=== PATIENT | male | born 1955 | race Caucasian/White ===

== ENCOUNTER 2019-07-07 11:05 | Outpatient (CLI) | payer MEDICARE, SELFPAY ==
[2019-07-07 11:40] LABS: Blood Urea Nitrogen 7 mg/dL (9-20); Carbon Dioxide 26 mmol/L (22-30); Chloride 100 mmol/L (98-107); Estimated Glomerular Filt Rate > 60; Glucose 96 mg/dL (75-110); Potassium 4.6 mmol/L (3.4-5.0); Sodium 135 mmol/L (137-145)
== END 2019-07-07 11:06 | disposition home or self-care (01) ==
PROVIDERS: PCP Internal Medicine; Visit Provider Nurse Practitioner
DX: E87.1 Hypo-osmolality and hyponatremia (principal)
CPT/HCPCS: 36415; 80048

== ENCOUNTER 2019-12-13 08:14 | Outpatient (CLI) | payer MEDICARE, SELFPAY ==
[2019-12-13 09:08] LABS: Alanine Aminotransferase 16 U/L (4-50); Albumin Level 4.4 g/dL (3.5-5.1); Alkaline Phosphatase 78 U/L (38-126); Aspartate Amino Transferase 26 U/L (17-59); Bilirubin,Total 1.4 mg/dL (0.2-1.3); Blood Urea Nitrogen 9 mg/dL (9-20); Calcium 9.5 mg/dL (8.4-10.2); Carbon Dioxide 29 mmol/L (22-30); Cholesterol 156 mg/dL (0-200); Estimated Glomerular Filt Rate > 60; Glucose 80 mg/dL (75-110); HDL Direct 48 mg/dL; Triglycerides 82 mg/dL (<150)
[2019-12-13 09:16] LABS: Basophils Percent Auto 0.5 % (0.2-1.2); Eosinophils Absolute Auto 0.1 K/mm3 (0-0.3); Eosinophils Percent Auto 2.3 % (0-4.4); Hemoglobin 16.1 g/dL (14.0-18.0); Immature Granulocyte Absolute 0.02 K/mm3 (0.00-0.031); Immature Granulocyte Percent A 0.5 % (0-0.5); Immature Platelet Fraction Pct 5.3 % (0.9-11.2); LDL Cholesterol Direct 84 mg/dL; Lymphocytes Absolute Auto 0.93 K/mm3 (0.9-3.2); Lymphocytes Percent Auto 21.3 % (18.3-44.2); Mean Corpuscular HGB Conc 34.3 g/dl (32-36); Mean Corpuscular Hemoglobin 31.6 pg (26-34); Mean Corpuscular Volume 92.2 fl (80-100); Mean Platelet Volume 10.5 fl (7.4-10.4); Monocytes Absolute Auto 0.4 K/mm3 (0.1-0.6); Monocytes Percent Auto 9.8 % (2.6-8.5); Neutrophils Absolute Auto 2.9 K/mm3 (1.3-6.7); Neutrophils Percent Auto 65.6 % (45.5-73.1); Platelet Count Result 103 k/mm3 (150-375); Red Cell Distribution Width 12.9 % (11.5-14.5); White Blood Count 4.4 K/mm3 (4.5-10.0)
[2019-12-13 09:19] LABS: Anion Gap 11 mmol/L (8-16); Chloride 94 mmol/L (98-107); Potassium 4.8 mmol/L (3.4-5.0); Sodium 134 mmol/L (137-145)
[2019-12-13 09:36] LABS: Prostate Specific Antigen 1.9 ng/mL (< OR = 4.0)
[2019-12-13 10:01] LABS: Vitamin B12 > 1000.0 pg/mL (239-931)
== END 2019-12-13 08:15 | disposition home or self-care (01) ==
PROVIDERS: PCP Internal Medicine; Visit Provider Nurse Practitioner
DX: E78.5 Hyperlipidemia, unspecified (principal); I10 Essential (primary) hypertension; Z12.5 Encounter for screening for malignant neoplasm of prostate; E53.8 Deficiency of other specified B group vitamins; E03.9 Hypothyroidism, unspecified
CPT/HCPCS: 36415; 80053; 80061; 82607; 84153; 84443; 85025; 85055; G0103

== ENCOUNTER → 2020-05-07 11:41 | Outpatient (CLI) | payer MEDICARE, SELFPAY ==
--- NOTE | ~2020-05-07 | MR_ITS ---
EXAMINATION: MR lumbar spine wo/w con EXAM DATE: 05/07/2020 12:46 INDICATION: Scoliosis, low back pain. Lumbar fusion 2015. TECHNIQUE: Multi-sequential, multiplanar MR images of the lumbar spine were obtained without contrast . Sagittal T1, T2, T2 fat saturation images. Axial T2 weighted images. Axial T1 weighted sequence. Patient was then injected with 17 mL Multihance intravenous contrast and reimaged. Postcontrast axi al and sagittal T1-weighted fat saturation sequences were obtained. Comparison is made to prior exami nation from 11/14/2015. FINDINGS: There is moderate upper lumbar dextroscoliosis centered at the posteriorly fused L2-3 level s. There is moderate to severe disc disease at this level, and mild loss of the vertebral body height s on the concave side of the scoliosis. Moderate to severe disc disease at L5-S1, moderate at L4-5 an d L1-2. There is 2 mm anterolisthesis L2 on L3, 2 mm retrolisthesis L4 on L5 and 4 mm retrolisthesis L5 on S1. There is an exophytic right renal fluid signal intensity lesion consistent with cyst measur ing 2.3 cm. Sagittal images demonstrates mild disc bulge at T10-11, and probably moderate facet arthropathy. Ther e is also superimposed right central disc extrusion measuring about 7 mm in size, probably causing mo derate central canal stenosis. No appreciable CSF space surrounding the conus medullary is identified , and there is possibility of minimal 4 mm region of increased conus medullaris signal just distal to the narrowing. There are no areas of abnormal enhancement on the post contrast images. Disc bulge was present in 2016 study but the superimposed right central extrusion has developed. Additionally, m oderate to severe right neural foraminal stenosis at this level. Level by level evaluation: T12-L1: Disc does not extend beyond the endplate margin. Facet arthropathy: Mild bilateral. Neural foraminal stenosis: No stenosis. Central canal stenosis: No stenosis. L1-L2: There is a mild diffuse disc bulge. Facet arthropathy: Mild. Neural foraminal stenosis: No stenosis. Central canal stenosis: No stenosis. L2-L3: There is a mild diffuse disc bulge. Facet arthropathy: Poorly visualized. Neural foraminal stenosis: Probably mild to moderate left, no right. Central canal stenosis: Laminectomies, no stenosis. L3-L4: There is a mild diffuse disc bulge. Facet arthropathy: Moderate to severe . Ligamentum flavum enlargement . Neural foraminal stenosis: Mild bilateral. Central canal stenosis: Mild to moderate. L4-L5: There is a mild to moderate diffuse disc bulge. Facet arthropathy: Moderate. Neural foraminal stenosis: Moderate to severe right, moderate left. Central canal stenosis: Mild to moderate. L5-S1: There is a moderate diffuse disc bulge. Facet arthropathy: Mild to moderate. Neural foraminal stenosis: Moderate to severe right, moderate left. Central canal stenosis: Mild. Mild progression spondylosis compared to previous examination, and as stated above the T10-11 right c entral extrusion has developed. IMPRESSION: 1. T10-11 right central protrusion contributing to at least moderate central canal stenosis, and pos sible punctate focus of cord edema or myelomalacia at this level. 2. Moderate dextroscoliosis centered at posteriorly fused L2-3 level with mild chronic loss of these vertebral body heights. 3. Lumbar spondylosis as above. Reviewed, dictated and finalized at location A. IMPRESSION: 1. T10-11 right central protrusion contributing to at least moderate central c anal stenosis, and possible punctate focus of cord edema or myelomalacia at thi s level. 2. Moderate dextroscoliosis centered at posteriorly fused L2-3 level with mild chr
[2020-05-07 12:11] LABS: Estimated Glomerular Filt Rate > 60
== END ==
PROVIDERS: PCP Internal Medicine; Visit Provider Nurse Practitioner
DX: M41.9 Scoliosis, unspecified (principal); M51.24 Other intervertebral disc displacement, thoracic region; Z98.1 Arthrodesis status; M47.896 Other spondylosis, lumbar region
CPT/HCPCS: 72158; A9577

== ENCOUNTER 2020-06-12 09:38 | Outpatient (CLI) | payer MEDICARE, SELFPAY ==
[2020-06-12 10:30] LABS: Alanine Aminotransferase 17 U/L (4-50); Albumin Level 4.3 g/dL (3.5-5.1); Alkaline Phosphatase 78 U/L (38-126); Anion Gap 6 mmol/L (8-16); Aspartate Amino Transferase 26 U/L (17-59); Blood Urea Nitrogen 11 mg/dL (9-20); Carbon Dioxide 29 mmol/L (22-30); Chloride 104 mmol/L (98-107); Estimated Glomerular Filt Rate > 60; Glucose 99 mg/dL (75-110); Potassium 4.1 mmol/L (3.4-5.0); Sodium 139 mmol/L (137-145)
[2020-06-12 10:35] LABS: Basophils Percent Auto 0.7 % (0.2-1.2); Eosinophils Absolute Auto 0.1 K/mm3 (0-0.3); Eosinophils Percent Auto 1.3 % (0-4.4); Hematocrit 47.3 % (42.0-52.0); Hemoglobin 15.7 g/dL (14.0-18.0); Immature Granulocyte Absolute 0.01 K/mm3 (0.00-0.031); Immature Granulocyte Percent A 0.2 % (0-0.5); Immature Platelet Fraction Pct 4.3 % (0.9-11.2); Lymphocytes Absolute Auto 0.89 K/mm3 (0.9-3.2); Lymphocytes Percent Auto 19.9 % (18.3-44.2); Mean Corpuscular HGB Conc 33.2 g/dl (32-36); Mean Corpuscular Hemoglobin 31.7 pg (26-34); Mean Corpuscular Volume 95.6 fl (80-100); Monocytes Absolute Auto 0.4 K/mm3 (0.1-0.6); Monocytes Percent Auto 7.8 % (2.6-8.5); Neutrophils Absolute Auto 3.1 K/mm3 (1.3-6.7); Neutrophils Percent Auto 70.1 % (45.5-73.1); Platelet Count Result 130 k/mm3 (150-375); Red Blood Count 4.95 M/mm3 (4.6-6.20); Red Cell Distribution Width 13.3 % (11.5-14.5); White Blood Count 4.5 K/mm3 (4.5-10.0)
== END 2020-06-12 09:39 | disposition home or self-care (01) ==
PROVIDERS: PCP Internal Medicine; Visit Provider Nurse Practitioner
DX: Z01.818 Encounter for other preprocedural examination (principal)
CPT/HCPCS: 36415; 80053; 85025; 85055

== ENCOUNTER → 2020-10-09 13:20 | Outpatient (CLI) | payer MEDICARE, SELFPAY ==
--- NOTE | ~2020-10-09 | XR_ITS ---
EXAMINATION: XR thoracic spine 2V DATE: 10/09/2020 13:33 INDICATION: Thoracic spine fusion. TECHNIQUE: 3 views of thoracic spine standing were obtained. COMPARISON: Chest 2 views 02/13/2019 FINDINGS: There is 17 degrees levoscoliosis of lower thoracic spine. There is mild chronic anterior w edging of T6, T7, and T8 vertebral bodies. There is mild to moderately decreased disc height at multi ple levels in mid and lower thoracic spine. There are endplate osteophytes at many levels. There are changes of posterior fusion procedure at T10-T11 with pedicle screws. There is moderate cervical spon dylosis. IMPRESSION: 1. Posterior fusion procedure at T10-T11. 2. Moderate thoracic spondylosis. 3. Thoracic levoscoliosis. Reviewed, dictated and finalized at location A.
== END ==
PROVIDERS: PCP Internal Medicine
DX: Z98.1 Arthrodesis status (principal); M47.814 Spondylosis without myelopathy or radiculopathy, thoracic region; M41.84 Other forms of scoliosis, thoracic region
CPT/HCPCS: 72070

== ENCOUNTER 2020-12-12 07:55 | Outpatient (CLI) | payer MEDICARE, SELFPAY ==
[2020-12-12 08:30] LABS: Basophils Percent Auto 0.5 % (0.2-1.2); Eosinophils Absolute Auto 0.1 K/mm3 (0-0.3); Eosinophils Percent Auto 1.4 % (0-4.4); Hematocrit 48.7 % (42.0-52.0); Hemoglobin 16.5 g/dL (14.0-18.0); Immature Granulocyte Absolute 0.04 K/mm3 (0.00-0.031); Immature Granulocyte Percent A 0.7 % (0-0.5); Immature Platelet Fraction Pct 4.1 % (0.9-11.2); Lymphocytes Percent Auto 16.2 % (18.3-44.2); Mean Corpuscular HGB Conc 33.9 g/dl (32-36); Mean Corpuscular Hemoglobin 31.6 pg (26-34); Mean Corpuscular Volume 93.3 fl (80-100); Monocytes Absolute Auto 0.4 K/mm3 (0.1-0.6); Monocytes Percent Auto 7.7 % (2.6-8.5); Neutrophils Absolute Auto 4.1 K/mm3 (1.3-6.7); Neutrophils Percent Auto 73.5 % (45.5-73.1); Platelet Count Result 122 k/mm3 (150-375); Red Blood Count 5.22 M/mm3 (4.6-6.20); Red Cell Distribution Width 13.1 % (11.5-14.5); White Blood Count 5.6 K/mm3 (4.5-10.0)
[2020-12-12 08:40] LABS: Alanine Aminotransferase 19 U/L (4-50); Albumin Level 4.7 g/dL (3.5-5.1); Alkaline Phosphatase 79 U/L (38-126); Anion Gap 14 mmol/L (8-16); Aspartate Amino Transferase 30 U/L (17-59); Bilirubin,Total 1.5 mg/dL (0.2-1.3); Blood Urea Nitrogen 12 mg/dL (9-20); Calcium 9.6 mg/dL (8.4-10.2); Carbon Dioxide 25 mmol/L (22-30); Chloride 96 mmol/L (98-107); Cholesterol 176 mg/dL (0-200); Estimated Glomerular Filt Rate > 60; Glucose 90 mg/dL (65-110); HDL Direct 54 mg/dL; Potassium 5.1 mmol/L (3.4-5.0); Sodium 135 mmol/L (137-145); Triglycerides 97 mg/dL (<150)
[2020-12-12 08:54] LABS: LDL Cholesterol Direct 90 mg/dL
[2020-12-12 08:57] LABS: Vitamin D 25 Hydroxy 51.1 ng/mL
[2020-12-12 09:11] LABS: Prostate Specific Antigen 2.8 ng/mL (< OR = 4.0)
== END 2020-12-12 07:56 | disposition home or self-care (01) ==
LOC: ANHLAB 07:58
PROVIDERS: PCP Internal Medicine; Visit Provider Nurse Practitioner
DX: E55.9 Vitamin D deficiency, unspecified (principal); E78.5 Hyperlipidemia, unspecified; I10 Essential (primary) hypertension; E03.9 Hypothyroidism, unspecified; Z12.5 Encounter for screening for malignant neoplasm of prostate
CPT/HCPCS: 36415; 80053; 80061; 82306; 84153; 84443; 85025; 85055; G0103

== ENCOUNTER 2021-12-12 07:26 | Outpatient (CLI) | payer MEDICARE, SELFPAY ==
[2021-12-12 08:15] LABS: Basophils Absolute Auto 0.1 K/mm3 (0.0-0.1); Eosinophils Absolute Auto 0.1 K/mm3 (0-0.3); Hemoglobin 16.8 g/dL (14.0-18.0); Immature Granulocyte Absolute 0.01 K/mm3 (0.00-0.031); Immature Granulocyte Percent A 0.2 % (0-0.5); Immature Platelet Fraction Pct 5.2 % (0.9-11.2); Lymphocytes Absolute Auto 1.01 K/mm3 (0.9-3.2); Lymphocytes Percent Auto 20.2 % (18.3-44.2); Mean Corpuscular HGB Conc 33.6 g/dl (32-36); Mean Corpuscular Hemoglobin 31.6 pg (26-34); Mean Platelet Volume 9.8 fl (7.4-10.4); Monocytes Absolute Auto 0.5 K/mm3 (0.1-0.6); Neutrophils Absolute Auto 3.3 K/mm3 (1.3-6.7); Neutrophils Percent Auto 66.6 % (45.5-73.1); Platelet Count Result 136 k/mm3 (150-375); Red Blood Count 5.32 M/mm3 (4.6-6.20); Red Cell Distribution Width 13.4 % (11.5-14.5)
[2021-12-12 08:27] LABS: Alanine Aminotransferase 22 U/L (6-50); Albumin Level 4.9 g/dL (3.5-5.1); Alkaline Phosphatase 78 U/L (38-126); Anion Gap 18 mmol/L (8-16); Aspartate Amino Transferase 26 U/L (17-59); Bilirubin,Total 1.5 mg/dL (0.2-1.3); Blood Urea Nitrogen 8 mg/dL (9-20); Carbon Dioxide 22 mmol/L (22-30); Chloride 93 mmol/L (98-107); Cholesterol 190 mg/dL (0-200); Estimated Glomerular Filt Rate > 60; Glucose 79 mg/dL (65-110); HDL Direct 52 mg/dL; Sodium 133 mmol/L (137-145); Triglycerides 89 mg/dL (<150)
[2021-12-12 08:37] LABS: LDL Cholesterol Direct 97 mg/dL
[2021-12-12 08:58] LABS: Prostate Specific Antigen 2.9 ng/mL (< OR = 4.0)
[2021-12-12 09:30] LABS: Vitamin D 25 Hydroxy 50.3 ng/mL
== END 2021-12-12 07:27 | disposition home or self-care (01) ==
LOC: ANHLAB 07:27
PROVIDERS: PCP Internal Medicine; Visit Provider Nurse Practitioner
DX: E55.9 Vitamin D deficiency, unspecified (principal); E03.9 Hypothyroidism, unspecified; E78.5 Hyperlipidemia, unspecified; I10 Essential (primary) hypertension; Z12.5 Encounter for screening for malignant neoplasm of prostate
CPT/HCPCS: 36415; 80053; 80061; 82306; 84153; 84443; 85025; 85055; G0103

== ENCOUNTER 2022-12-15 08:19 | Outpatient (CLI) | payer MEDICARE, SELFPAY ==
[2022-12-15 09:13] LABS: Basophils Percent Auto 0.5 % (0.2-1.2); Eosinophils Absolute Auto 0.1 K/mm3 (0-0.3); Eosinophils Percent Auto 1.9 % (0-4.4); Hemoglobin 17.7 g/dL (14.0-18.0); Immature Granulocyte Absolute 0.03 K/mm3 (0.00-0.031); Immature Granulocyte Percent A 0.5 % (0-0.5); Immature Platelet Fraction Pct 5.2 % (0.9-11.2); Lymphocytes Absolute Auto 0.94 K/mm3 (0.9-3.2); Lymphocytes Percent Auto 16.4 % (18.3-44.2); Mean Corpuscular HGB Conc 33.4 g/dl (32-36); Mean Corpuscular Hemoglobin 31.2 pg (26-34); Mean Corpuscular Volume 93.3 fl (80-100); Mean Platelet Volume 10.6 fl (7.4-10.4); Monocytes Absolute Auto 0.5 K/mm3 (0.1-0.6); Monocytes Percent Auto 9.3 % (2.6-8.5); Neutrophils Absolute Auto 4.1 K/mm3 (1.3-6.7); Neutrophils Percent Auto 71.4 % (45.5-73.1); Platelet Count Result 134 k/mm3 (150-375); Red Blood Count 5.68 M/mm3 (4.6-6.20); Red Cell Distribution Width 13.1 % (11.5-14.5); White Blood Count 5.7 K/mm3 (4.5-10.0)
[2022-12-15 09:19] LABS: Alanine Aminotransferase 24 U/L (6-50); Albumin Level 4.9 g/dL (3.5-5.1); Alkaline Phosphatase 74 U/L (38-126); Anion Gap 17 mmol/L (8-16); Aspartate Amino Transferase 33 U/L (17-59); Bilirubin,Total 1.7 mg/dL (0.2-1.3); Blood Urea Nitrogen 8 mg/dL (9-20); Calcium 9.6 mg/dL (8.4-10.2); Carbon Dioxide 21 mmol/L (22-30); Chloride 94 mmol/L (98-107); Cholesterol 185 mg/dL (0-200); Estimated Glomerular Filt Rate > 60; Glucose 82 mg/dL (65-110); HDL Direct 54 mg/dL; Potassium 5.2 mmol/L (3.4-5.0); Sodium 132 mmol/L (137-145); Triglycerides 91 mg/dL (<150)
[2022-12-15 09:29] LABS: LDL Cholesterol Direct 104 mg/dL
[2022-12-15 09:47] LABS: Thyroid Stimulating Hormone 0.867 uIU/mL (0.465-4.680)
== END 2022-12-15 08:20 | disposition home or self-care (01) ==
PROVIDERS: PCP Internal Medicine; Visit Provider Nurse Practitioner
DX: E78.5 Hyperlipidemia, unspecified (principal); D69.6 Thrombocytopenia, unspecified; E03.9 Hypothyroidism, unspecified; E87.1 Hypo-osmolality and hyponatremia; I10 Essential (primary) hypertension
CPT/HCPCS: 36415; 80053; 80061; 84443; 85025; 85055

== ENCOUNTER 2023-01-04 08:14 | Outpatient (CLI) | payer MEDICARE, SELFPAY ==
[2023-01-04 12:57] LABS: Prostate Specific Antigen 3.8 ng/mL (< OR = 4.0)
== END 2023-01-04 08:15 | disposition home or self-care (01) ==
PROVIDERS: PCP Internal Medicine; Visit Provider Nurse Practitioner
DX: Z12.5 Encounter for screening for malignant neoplasm of prostate (principal)
CPT/HCPCS: 36415; 84153; G0103

== ENCOUNTER 2023-12-20 07:54 | Outpatient (CLI) | payer MEDICARE, SELFPAY ==
[2023-12-20 19:14] LABS: Basophils Absolute Auto 0.1 K/mm3 (0.0-0.1); Basophils Percent Auto 0.8 % (0.2-1.2); Eosinophils Absolute Auto 0.1 K/mm3 (0-0.3); Eosinophils Percent Auto 1.8 % (0-4.4); Hematocrit 51.2 % (42.0-52.0); Hemoglobin 16.9 g/dL (14.0-18.0); Immature Granulocyte Absolute 0.03 K/mm3 (0.00-0.031); Immature Granulocyte Percent A 0.5 % (0-0.5); Immature Platelet Fraction Pct 7.2 % (0.9-11.2); Lymphocytes Absolute Auto 0.83 K/mm3 (0.9-3.2); Lymphocytes Percent Auto 13.5 % (18.3-44.2); Mean Corpuscular Hemoglobin 31.5 pg (26-34); Mean Corpuscular Volume 95.3 fl (80-100); Mean Platelet Volume 11.8 fl (7.4-10.4); Monocytes Absolute Auto 0.6 K/mm3 (0.1-0.6); Monocytes Percent Auto 9.6 % (2.6-8.5); Neutrophils Absolute Auto 4.6 K/mm3 (1.3-6.7); Neutrophils Percent Auto 73.8 % (45.5-73.1); Platelet Count Result 118 k/mm3 (150-375); Red Blood Count 5.37 M/mm3 (4.6-6.20); Red Cell Distribution Width 13.6 % (11.5-14.5); White Blood Count 6.2 K/mm3 (4.5-10.0)
[2023-12-20 19:25] LABS: Alanine Aminotransferase 20 U/L (6-50); Albumin Level 4.5 g/dL (3.5-5.1); Alkaline Phosphatase 74 U/L (38-126); Anion Gap 15 mmol/L (4-12); Aspartate Amino Transferase 50 U/L (17-59); Bilirubin,Total 1.3 mg/dL (0.2-1.3); Blood Urea Nitrogen 7 mg/dL (9-20); Calcium 9.4 mg/dL (8.4-10.2); Carbon Dioxide 24 mmol/L (22-30); Chloride 89 mmol/L (98-107); Cholesterol 154 mg/dL (0-200); Estimated Glomerular Filt Rate > 60; Glucose 77 mg/dL (65-110); HDL Direct 49 mg/dL; Potassium 5.6 mmol/L (3.4-5.0); Sodium 128 mmol/L (137-145); Triglycerides 107 mg/dL (<150)
[2023-12-20 19:55] LABS: Thyroid Stimulating Hormone 0.369 uIU/mL (0.465-4.680)
[2023-12-20 20:48] LABS: LDL Cholesterol Direct 66 mg/dL
== END 2023-12-20 07:55 | disposition home or self-care (01) ==
PROVIDERS: PCP Internal Medicine; Visit Provider Nurse Practitioner
DX: D69.6 Thrombocytopenia, unspecified (principal); E03.9 Hypothyroidism, unspecified; E78.5 Hyperlipidemia, unspecified; E87.1 Hypo-osmolality and hyponatremia; Z12.5 Encounter for screening for malignant neoplasm of prostate
CPT/HCPCS: 36415; 80053; 80061; 84153; 84443; 85025; 85055; G0103

== ENCOUNTER 2023-12-28 08:02 | Outpatient (CLI) | payer MEDICARE, SELFPAY ==
[2023-12-28 13:25] LABS: Anion Gap 3 mmol/L (4-12); Blood Urea Nitrogen 15 mg/dL (9-20); Calcium 9.1 mg/dL (8.4-10.2); Carbon Dioxide 30 mmol/L (22-30); Chloride 103 mmol/L (98-107); Estimated Glomerular Filt Rate > 60; Glucose 90 mg/dL (65-110); Potassium 4.3 mmol/L (3.4-5.0); Sodium 136 mmol/L (137-145)
== END 2023-12-28 08:03 | disposition home or self-care (01) ==
LOC: ANHGOSHLAB 08:03
PROVIDERS: PCP Internal Medicine; Visit Provider Nurse Practitioner
DX: E87.5 Hyperkalemia (principal)
CPT/HCPCS: 36415; 80048

== ENCOUNTER 2024-03-31 12:00 | Outpatient (CLI) | payer MEDICARE, SELFPAY ==
--- NOTE | ~2024-03-31 | US_ITS ---
EXAMINATION: US soft tissue groin RT DATE: 03/31/2024 12:21 INDICATION: Right groin lump. TECHNIQUE: Multiple grayscale and Doppler ultrasound images of the right groin were obtained. COMPARISON: None FINDINGS: There is a 9 mm hypoechoic subcutaneous mass with increased through transmission in the rig ht groin. There is a tract to the skin. IMPRESSION: 1. 9 mm subcutaneous mass in the right groin, likely a sebaceous cyst. Reviewed, dictated and finalized at location A. HAULER
== END 2024-03-31 12:01 | disposition home or self-care (01) ==
LOC: GOSHIMG 12:00
PROVIDERS: PCP Nurse Practitioner; Visit Provider Nurse Practitioner
DX: R22.2 Localized swelling, mass and lump, trunk (principal)
CPT/HCPCS: 76882

== ENCOUNTER 2024-12-18 07:53 | Outpatient (CLI) | payer MEDICARE, SELFPAY ==
--- OUTSIDE RECORDS SUMMARY | 2024-12-18 07:59 | XMS_ITS | Clinical Summary ---
Author Organization [facility] [employer] Address [address] [place] [address] Care Team Providers Care Insulation Machine Operator Name Role Phone Ravi Cano DO Primary Care Provider [phone] Source Comments [facility],non-owned Affiliates and Associated Physician Practices is amultiple site organization consisting of ambulatory clinics and hospital sitesin [place], [place], [place] and [place]. This disclosure is being madepursuant to the Care Everywhere program and may not contain all information available regarding this patient. Last updated 17.[facility] [employer] Allergies Active Allergy Reactions Criticality Noted Date Comments Penicillins Rash Medium 09/28/2014 Medications * Be aware that medications may not be up to date on this document. Alwaysverify current medications with the patient. 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/2020 Immunizations Immunization Administration Dates Next Due Covid Pfizer primary monoval ent 12+ yr 0.3mL Purple cap 04/25/2020,04/04/2020 Family History Medical History Relation Name Comments Heart Failure Father None Known Mother Relation Name Status Comments Father Mother Social History Tobacco Use Types Packs/Day Years Used Date Smoking Tobacco: Never Smokeless Tobacco: Never Alcohol Use Standard Drinks/Week Comments No 0 (1 standard drink = 0.6 oz pur e alcohol) Sex and Gender Information Value Date Recorded Sex Assigned at Not on file 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 Gender Identity Not on file Sexual Orientation Not on file Occupation Industry Job Start Date Job End Date RETIRED Not on file Not on file Not on file Last Filed Vital Signs Vital Sign Reading Time Taken Comments Blood Pressure 147/91 07/27/2020 7:51 AM CDT Pulse 63 07/27/2020 7:51 AM CDT Temperature 36.9 C (98.5 F) 07/27/2020 7:51 AM CDT Respiratory Rate 16 07/27/2020 7:51 AM CDT Oxygen Saturation 96% 07/27/2020 7:51 AM CDT Inhaled Oxygen Concentration - - Weight 89.8 kg (198 lb) 10/02/2020 8:06 AM CDT Height 177.8 cm (5' 10) 10/02/2020 8:06 AM CDT Body Mass Index 28.41 10/02/2020 8:06 AM CDT Plan of Treatment Health Maintenance Due Date Last Done Comments COLOGUARD (AGES 45-75) - COL ON CA SCREENING 1953 COLON MONITORING 1953 COLONOSCOPY - COLON CA SCREENING 1953 CT COLONOGRAPHY - COLON CA SCREENING 1953 Colorectal Cancer Screening 1953 FIT - COLON CA SCREENING 1953 FLEX SIG - COLON CA SCREENING 1953 HEPATITIS C SCREENING 12/30/1970 DTAP/TDAP/TD VACCINES (1 - Tdap) 01/04/1972 PNEUMOCOCCAL VACCINE 50+ (1 of 1 - PCV) 2003 ZOSTER VACCINE (1 of 2) 2003 SCREENING FOR DIABETES 06/10/2020 DEPRESSION SCREENING 02/09/2024 COVID-19 VACCINE (3 - 2024-2 6 season) 2024 04/25/2020, 04/04/2020 INFLUENZA VACCINE (#1) 2024 Respiratory Syncytial Virus (RSV) Vaccine Pt: or over 60 yrs (1 - 1-dose 75+ series) 01/04/2028 HEPATITIS B VACCINE Aged Out No longe r eligible based on patient's age to complete this topic HIB VACCINE Aged Out No longer eligi ble based on patient's age to complete this topic HPV VACCINE Aged Out No longer eligi ble based on patient's age to complete this topic MENINGOCOCCAL (Group B) VACCINE SHARED DECISION-MAKING Aged Out No longer eligible based on patient's age to complete this topic MENINGOCOCCAL GROUPS A/C/Y/W VACCINE Aged Out No longer eligible b ased on patient's age to complete this topic Medical Devices Implanted Type Area Last Dipper Device Identifier Shelf Expiration Date Model / Serial / Lot Flosedileep Hemostatic Matrix 10ml Implanted:Qty: 1 on 07/25/2020 by Oz Arriola DO at [facility] [employer] 12/22/2020 [id number] / / [id number] Graft Bone I Fctr 2.5cc Algrf Ptty Syr Implanted:Qty: 1 on 07/25/2020 by zO Arriola DO at [facility] [employer] 04/08/2023 [id number] / / [id number] Screw 5.5mm 40mm Pa Spne Vrst Nonster Implanted:Qty: 4 on 07/25/2020 by Oz Arriola DO at [facility] [place] [facility] [id number] / / [employer] Spnl Gry 40mm 5.5mm Contr Implanted:Qty: 2 on 07/25/2020 by Oz Arriola DO at [facility] Medical [facility] [id number] / / Screw Set Spne Vrst Nonster Lf Implanted:Qty: 4 on 07/25/2020 by Oz Arriola DO at [facility] [employer] [id number] / / [place] [address] Advance Directives Documents on File Type Date Recorded Patient Civil Design Technician Expl anation Adv Directive/Living Will/POA 07/29/2020 10:22 PM * Full Code (Latest Code Status on File) Date Activated Date Inactivated Comments 07/25/2020 1:26 PM 07/27/2020 12:41 PM Care Teams Insulation Machine Operator Relationship Specialty Start Date End Date Ravi Cano DO PCP - General Internal Medicine 03/23/16
--- OUTSIDE RECORDS SUMMARY | 2024-12-18 07:59 | XMS_ITS | Clinical Summary ---
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 Active levothyroxine (SYNTHROID, LEVOTHROID) 25 mcg tablet Take 12.5 mcg by mouth motion picture equipment machinist before breakfast Active losartan (COZAAR) 100 mg tablet Take 100 mg by mouth daily Active amLODIPine (NORVASC) 2.5 mg tablet Take 2.5 mg by mouth daily Active pravastatin (PRAVACHOL) 40 mg tablet Take 40 mg by mouth daily Active aspirin 81 mg enteric coated tablet Take 81 mg by mouth daily Active cyanocobalamin (Vitamin B-12) 1,000 mcg tabletIndicatio ns:Prevention of Vitamin B12 Deficiency Take 1,000 mcg by mouth daily Active cholecalciferol (VITAMIN D-3) 1,000 unit Take 1,000 Units by mouth daily Active Active Problems Problem Noted Date Diagnosed Date Status post lumbar spinal fusion 04/19/2019 Assessment & Plan (04/19/2019 1:51 PM CDT): Mr. Patton is clinically doing well after L2-3 decompression and fusion with relief of his lumbar stenosis symptoms. He denies any current back pain or leg symptoms. On follow-up x-ray he does have a definite radiographic progression of his thoracolumbar scoliosis. As such, I have asked him to follow-up with Dr. Arriola for repeat assessment. We will set up a follow-up appointment in one year with me to make sure that this is been re-evaluated.. Resolved Problems Problem Noted Date Diagnosed Date Resolved Date Lumbar stenosis without neur ogenic claudication 04/20/2018 04/19/2019 Assessment & Plan (04/20/2018 11:11 AM CDT): Mr. Patton is clinically doing well after lumbar decompression and fusion. He has a known thoracolumbar scoliosis. We will see him in 1 year's time with a repeat x-ray at that time. If the films are unchanged, then we will discharge him from clinic. He understands that he is at higher risk for progression of scoliosis. Surgical History Surgery Date Site/Laterality Comments LUMBAR FUSION 02/08/2014 - 02/07/2015 L2-3 PSF (Dr. 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 Gender Identity Not on file Sexual Orientation Not on file Last Filed Vital Signs Vital Sign Reading Time Taken Comments Blood Pressure 93/58 04/22/2014 7:55 AM CDT Pulse 86 04/22/2014 7:55 AM CDT Temperature - - Respiratory Rate 12 04/19/2019 10:5 2 AM CDT Oxygen Saturation - - Inhaled Oxygen Concentration - - Weight 104.7 kg (230 lb 12.8 oz) 2019 10:52 AM CDT Height 172.7 cm (5' 8) 04/19/2019 10:5 2 AM CDT Body Mass Index 35.09 04/19/2019 10:52 AM CDT Plan of Treatment Not on file Insurance [facility] MEDICARE [facility] Address: [facility] [address] [place] [address] Care Teams Autism Motor Specialist Relationship Specialty Start Date End Date Ravi Cano DO PCP - General 04/27/16
[2024-12-18 12:56] LABS: Hematocrit 52.0 % (42.0-52.0); Hemoglobin 17.2 g/dL (14.0-18.0); Immature Granulocyte Percent A 0.4 % (0-0.5); Immature Platelet Fraction Pct 6.2 % (0.9-11.2); Lymphocytes Absolute Auto 1.21 K/mm3 (0.9-3.2); Mean Corpuscular HGB Conc 33.1 g/dl (32-36); Mean Corpuscular Hemoglobin 30.9 pg (26-34); Mean Corpuscular Volume 93.5 fl (80-100); Nucleated Red Blood Cells Absolute Auto 0.000 K/mm3 (0.0-0.012); Nucleated Red Blood Cells Perc 0.0 % (0.0-0.2); Platelet Count Result 119 k/mm3 (150-375); Red Blood Count 5.56 M/mm3 (4.6-6.20); White Blood Count 5.6 K/mm3 (4.5-10.0)
[2024-12-18 13:06] LABS: Alanine Aminotransferase 17 U/L (6-50); Albumin Level 4.5 g/dL (3.5-5.1); Alkaline Phosphatase 67 U/L (38-126); Anion Gap 12 mmol/L (4-12); Aspartate Amino Transferase 46 U/L (17-59); Bilirubin,Total 1.1 mg/dL (0.2-1.3); Blood Urea Nitrogen 9 mg/dL (9-20); Calcium 9.4 mg/dL (8.4-10.2); Carbon Dioxide 25 mmol/L (22-30); Chloride 96 mmol/L (98-107); Cholesterol 161 mg/dL (0-200); Estimated Glomerular Filt Rate > 60; Glucose 74 mg/dL (65-110); HDL Direct 49 mg/dL; Potassium 4.6 mmol/L (3.4-5.0); Sodium 133 mmol/L (137-145); Total Protein 7.2 g/dL (6.3-8.2); Triglycerides 100 mg/dL (<150)
[2024-12-18 13:43] LABS: Prostate Specific Antigen 4.3 ng/mL (< OR = 4.0); Thyroid Stimulating Hormone 0.515 uIU/mL (0.465-4.680)
== END 2024-12-18 07:54 | disposition home or self-care (01) ==
LOC: ANHGOSHLAB 07:54
PROVIDERS: PCP Nurse Practitioner; Visit Provider Nurse Practitioner
DX: Z12.5 Encounter for screening for malignant neoplasm of prostate (principal); E78.5 Hyperlipidemia, unspecified; E03.9 Hypothyroidism, unspecified; I10 Essential (primary) hypertension; D69.6 Thrombocytopenia, unspecified; E87.1 Hypo-osmolality and hyponatremia
CPT/HCPCS: 36415; 80053; 80061; 84153; 84443; 85025; 85055; G0103